=== PATIENT | female | born 1980 | race Caucasian/White ===

== ENCOUNTER 2018-04-06 22:27 | Emergency (ER) | payer SELFPAY, OTHER | END 2018-04-07 03:58 | disposition left against medical advice (07) | LOC: FTE 22:27 | DX: Z53.21 Procedure and treatment not carried out due to patient leaving prior to being seen by health care provider (principal) ==

== ENCOUNTER 2018-09-04 21:00 | Inpatient (IN) | payer OTHER ==
[~2018-09-04 21:00] MED LIST: OXYTOCIN 30 UNITS/LR 500 ML BAG IV
[2018-09-04] MEDS: LACTATED RINGER'S 1,000 ML IV (21:16)
[2018-09-04 21:23] LABS: ADD MAN DIFF? NO
[2018-09-04 21:26] LABS: BASOPHILS % 0.4 % (0.0-2.0); EOSINOPHILS % 0.8 % (0.0-7.0); HEMATOCRIT 31.5 % (37.0-47.0); HEMOGLOBIN 10.8 g/dl (12.0-16.0); LYMPHOCYTES # 1.5 10^3/ul (0.8-2.9); LYMPHOCYTES % 28.8 % (15.0-51.0); MEAN CORPUSCULAR HGB CONC 34.3 g/dl (32.0-37.0); MEAN CORPUSCULAR VOLUME 90.5 fl (82.0-101.0); MEAN PLATELET VOLUME 9.3 fl (7.4-10.4); MONOCYTE # 0.4 10^3/ul (0.3-0.9); NEUTROPHIL # 3.1 10^3/ul (1.6-7.5); NEUTROPHILS % 61.8 % (39.0-77.0); PLATELET COUNT 196 10^3/UL (140-415); RED BLOOD COUNT 3.48 10^6/ul (4.20-5.40); RED CELL DISTRIBUTION WIDTH 12.4 % (11.5-14.5)
[2018-09-04] MEDS ORDERED: CARBOPROST 250 MCG INJ IM (21:30)
[2018-09-04] MEDS ORDERED: OXYTOCIN 30 UNITS/LR 500 ML IV (21:30)
[2018-09-04] MEDS ORDERED: METHYLERGONOVINE 0.2 MG INJ IM (21:30)
[2018-09-04] MEDS ORDERED: MISOPROSTOL 200 MCG TAB PR (21:30)
[2018-09-04] MEDS ORDERED: morphine SULFATE/PF (10 MG/10 ML) INJ (21:39)
[2018-09-04] MEDS ORDERED: OXYTOCIN 10 UNIT INJ (21:40)
[2018-09-04] MEDS ORDERED: PHENYLephrine (100 MCG/ML) 5ML SYG (21:40)
[2018-09-04 21:45] LABS: INR 0.92; PARTIAL THROMBOPLASTIN TIME 25.6 Sec (23.0-35.0); PROTIME 12.4 Sec (11.9-14.9)
[2018-09-04] MEDS ORDERED: ACETAMINOPHEN 500 MG TAB PO (22:00)
[2018-09-04] MEDS ORDERED: HYDROmorphONE 0.5 MG/0.5 ML SYG IV (22:00)
[2018-09-04] MEDS ORDERED: morphine 2 MG INJ IV ×2 (22:00)
[2018-09-04] MEDS ORDERED: ONDANSETRON 4 MG INJ IV (22:00)
[2018-09-04] MEDS ORDERED: NALBUPHINE HCL (10 MG/1 ML) INJ IV (22:00)
[2018-09-04] MEDS ORDERED: NALOXONE (0.4 MG/ML) INJ IV (22:00)
[2018-09-04] MEDS ORDERED: HYDROCODONE/APAP (5/325) TAB PO (22:00)
[2018-09-04 22:15] LABS: HEPATITIS B SURFACE ANTIGEN NEGATIVE (NEGATIVE)
[2018-09-04] MEDS ORDERED: DEXAMETHASONE 4 MG/ML 1 ML INJ (22:28)
[2018-09-04] MEDS ORDERED: KETOROLAC 30 MG INJ (22:28)
[2018-09-04] MEDS ORDERED: METOCLOPRAMIDE 10 MG INJ (22:28)
[2018-09-04] MEDS: ONDANSETRON 4 MG INJ IV (23:08)
[2018-09-04] MEDS: CITRIC ACID/NA CITRATE 30 ML CUP PO (23:10)
[2018-09-04] MEDS: CEFAZOLIN 2 GM/50 ML (PMX) 50 ML IV (23:10)
[2018-09-05] MEDS: OXYTOCIN 30 UNITS/LR 500 ML IV ×3 (00:40→04:13)
[2018-09-05] MEDS: LACTATED RINGER'S 1,000 ML IV ×2 (01:23→13:07)
[2018-09-05] MEDS ORDERED: METHYLERGONOVINE 0.2 MG INJ IM (01:30)
[2018-09-05] MEDS ORDERED: MISOPROSTOL 200 MCG TAB PR (01:30)
[2018-09-05] MEDS ORDERED: CARBOPROST 250 MCG INJ IM (01:30)
[2018-09-05] MEDS ORDERED: OXYCODONE/ACETAMINOPHEN (5/325) TAB PO (01:30)
[2018-09-05] MEDS ORDERED: OXYTOCIN 30 UNITS/LR 500 ML IV (01:30)
[2018-09-05] MEDS: DIPHENHYDRAMINE 50 MG INJ IV (02:09)
[2018-09-05] MEDS: KETOROLAC 30 MG INJ IV ×3 (06:11→17:59)
[2018-09-05 08:48] LABS: ADD MAN DIFF? NO
[2018-09-05 08:58] LABS: WHITE BLOOD COUNT 10.6 10^3/ul (4.8-10.8)
[2018-09-05 08:58] LABS: BASOPHILS % 0.2 % (0.0-2.0); HEMATOCRIT 29.7 % (37.0-47.0); LYMPHOCYTES # 1.5 10^3/ul (0.8-2.9); LYMPHOCYTES % 14.1 % (15.0-51.0); MEAN CORPUSCULAR HEMOGLOBIN 30.7 pg (29.0-33.0); MEAN CORPUSCULAR HGB CONC 33.7 g/dl (32.0-37.0); MEAN CORPUSCULAR VOLUME 91.1 fl (82.0-101.0); MEAN PLATELET VOLUME 9.7 fl (7.4-10.4); MONOCYTE # 0.6 10^3/ul (0.3-0.9); NEUTROPHIL # 8.4 10^3/ul (1.6-7.5); NEUTROPHILS % 79.2 % (39.0-77.0); PLATELET COUNT 194 10^3/UL (140-415); RED BLOOD COUNT 3.26 10^6/ul (4.20-5.40); RED CELL DISTRIBUTION WIDTH 12.4 % (11.5-14.5)
[2018-09-05 15:20] LABS: RAPID PLASMA REAGIN NONREACTIVE (NR)
[2018-09-05] MEDS: HYDROmorphONE 0.5 MG/0.5 ML SYG IV (20:49)
[2018-09-05] MEDS: SENNA/DOCUSATE NA (8.6MG/50MG) TAB PO (20:50)
[2018-09-06] MEDS: LACTATED RINGER'S 1,000 ML IV ×2 (01:23→09:23)
[2018-09-06] MEDS: OXYCODONE/ACETAMINOPHEN (5/325) TAB PO ×5 (03:58→22:21)
[2018-09-06] MEDS: SENNA/DOCUSATE NA (8.6MG/50MG) TAB PO ×2 (08:30→22:21)
[2018-09-06 08:57] LABS: ADD MAN DIFF? NO
[2018-09-06 08:59] LABS: WHITE BLOOD COUNT 7.6 10^3/ul (4.8-10.8)
[2018-09-06 08:59] LABS: BASOPHILS % 0.3 % (0.0-2.0); EOSINOPHILS # 0.1 10^3/ul (0.0-0.5); EOSINOPHILS % 0.8 % (0.0-7.0); HEMATOCRIT 26.2 % (37.0-47.0); HEMOGLOBIN 8.8 g/dl (12.0-16.0); LYMPHOCYTES # 1.3 10^3/ul (0.8-2.9); LYMPHOCYTES % 16.8 % (15.0-51.0); MEAN CORPUSCULAR HEMOGLOBIN 31.3 pg (29.0-33.0); MEAN CORPUSCULAR HGB CONC 33.6 g/dl (32.0-37.0); MEAN CORPUSCULAR VOLUME 93.2 fl (82.0-101.0); MEAN PLATELET VOLUME 9.9 fl (7.4-10.4); MONOCYTE # 0.4 10^3/ul (0.3-0.9); MONOCYTES % 5.2 % (0.0-11.0); NEUTROPHIL # 5.8 10^3/ul (1.6-7.5); NEUTROPHILS % 76.5 % (39.0-77.0); PLATELET COUNT 188 10^3/UL (140-415); RED BLOOD COUNT 2.81 10^6/ul (4.20-5.40); RED CELL DISTRIBUTION WIDTH 12.8 % (11.5-14.5)
[2018-09-06 09:23] LABS: ALANINE AMINOTRANSFERASE 22 IU/L (13-69); ALBUMIN 2.4 g/dl (3.3-4.9); ALBUMIN/GLOBULIN RATIO 0.88; ALKALINE PHOSPHATASE 124 IU/L (42-121); ANION GAP 4 (5-13); ASPARTATE AMINO TRANSFERASE 40 IU/L (15-46); BILIRUBIN,INDIRECT 0.2 mg/dl (0-1.1); BILIRUBIN,TOTAL 0.2 mg/dl (0.2-1.3); BLOOD UREA NITROGEN 3 mg/dl (7-20); CALCIUM 7.9 mg/dl (8.4-10.2); CARBON DIOXIDE 24 mmol/L (21-31); CHLORIDE 107 mmol/L (97-110); CREATININE 0.35 mg/dl (0.44-1.00); Estimated GFR > 60 mL/min (>60); GLUCOSE 110 mg/dl (70-220); POTASSIUM 3.2 mmol/L (3.5-5.1); SODIUM 135 mmol/L (135-144); TOTAL PROTEIN 5.1 g/dl (6.1-8.1)
[2018-09-07] MEDS ORDERED: IBUPROFEN 800 MG TAB (00:33)
[2018-09-07] MEDS: IBUPROFEN 800 MG TAB PO ×3 (00:36→21:27)
[2018-09-07] MEDS: LACTATED RINGER'S 1,000 ML IV ×4 (01:23→17:23)
[2018-09-07] MEDS: OXYCODONE/ACETAMINOPHEN (5/325) TAB PO ×4 (03:23→18:48)
[2018-09-07] MEDS: SENNA/DOCUSATE NA (8.6MG/50MG) TAB PO ×2 (08:21→21:25)
[2018-09-07] MEDS: LANOLIN 7 GM TUBE TOP (08:21)
[2018-09-07] MEDS: MAGNESIUM HYDROXIDE 30ML CUP PO (21:25)
[2018-09-07] MEDS ORDERED: IBUPROFEN 800 MG TAB PO (22:00)
[2018-09-08] MEDS: OXYCODONE/ACETAMINOPHEN (5/325) TAB PO (02:16)
[2018-09-08] MEDS: IBUPROFEN 800 MG TAB PO (05:47)
[2018-09-08] MEDS: DIPHTH/TET/ACEL PERTUSS (ADULT) 0.5 ML VIAL IM* (09:00)
[2018-09-08] MEDS: MAGNESIUM HYDROXIDE 30ML CUP PO (09:19)
[2018-09-08] MEDS: SENNA/DOCUSATE NA (8.6MG/50MG) TAB PO (09:19)
[2018-09-08] MEDS: BISACODYL 10 MG SUPP PR (15:51)
== END 2018-09-08 16:29 | disposition home or self-care (01) | DRG 788 ==
LOC: OBT 21:00 → PP1 09-05 01:09 → L-D 21:01 → OBT 21:25 → L-D 21:25
PROVIDERS: Obstetrics & Gynecology
PROC: 10D00Z1 Extraction of Products of Conception, Low, Open Approach (ICD-10-PCS; principal; 2018-09-04)
DX: O32.1XX0 Maternal care for breech presentation, not applicable or unspecified (principal); O32.2XX0 Maternal care for transverse and oblique lie, not applicable or unspecified; O90.89 Other complications of the puerperium, not elsewhere classified; R51 Headache; M54.2 Cervicalgia; M25.512 Pain in left shoulder; Z3A.36 36 weeks gestation of pregnancy; Z37.0 Single live birth
CPT/HCPCS: 72141; 76815; 80053; 85025; 85610; 85730; 86592; 86850; 86900; 86901; 87340; 99464